=== PATIENT | female | born 1985 | race Caucasian/White ===

== ENCOUNTER 2018-01-05 09:57 | Emergency (ER) | payer BC ==
[2018-01-05 12:26] LABS: URINE BLOOD (Dip) POC 2+ (NEGATIVE); URINE GLUCOSE (Dip) POC Negative (NEGATIVE); URINE KETONES (Dip) POC Negative (NEGATIVE); URINE LEUKOCYTE EST (Dip) POC Negative (NEGATIVE); URINE NITRITE (Dip) POC Negative (NEGATIVE); URINE TOTAL PROTEIN POC 2+ (NEGATIVE)
[2018-01-05 12:26] LABS: URINE PH (Dip) POC 5.5 (5.0-8.5)
[2018-01-05 12:28] LABS: ADD MAN DIFF? NO
[2018-01-05 12:29] LABS: BASOPHILS % 0.3 % (0.0-2.0); EOSINOPHILS # 0.2 10^3/ul (0.0-0.5); EOSINOPHILS % 2.7 % (0.0-7.0); HEMATOCRIT 43.1 % (37.0-47.0); HEMOGLOBIN 14.4 g/dl (12.0-16.0); LYMPHOCYTES # 2.7 10^3/ul (0.8-2.9); LYMPHOCYTES % 43.1 % (15.0-51.0); MEAN CORPUSCULAR HEMOGLOBIN 28.9 pg (29.0-33.0); MEAN CORPUSCULAR HGB CONC 33.4 g/dl (32.0-37.0); MEAN CORPUSCULAR VOLUME 86.4 fl (82.0-101.0); MEAN PLATELET VOLUME 11.5 fl (7.4-10.4); MONOCYTE # 0.5 10^3/ul (0.3-0.9); NEUTROPHIL # 2.9 10^3/ul (1.6-7.5); NEUTROPHILS % 45.7 % (39.0-77.0); PLATELET COUNT 214 10^3/UL (140-415); RED BLOOD COUNT 4.99 10^6/ul (4.20-5.40); RED CELL DISTRIBUTION WIDTH 11.5 % (11.5-14.5)
[2018-01-05 12:29] LABS: WHITE BLOOD COUNT 6.3 10^3/ul (4.8-10.8)
[2018-01-05 12:49] LABS: ALANINE AMINOTRANSFERASE 34 IU/L (13-69); ALBUMIN 4.7 g/dl (3.3-4.9); ALBUMIN/GLOBULIN RATIO 1.42; ALKALINE PHOSPHATASE 68 IU/L (42-121); ANION GAP 15 (8-16); ASPARTATE AMINO TRANSFERASE 23 IU/L (15-46); BILIRUBIN,INDIRECT 0.7 mg/dl (0-1.1); BILIRUBIN,TOTAL 0.7 mg/dl (0.2-1.3); BLOOD UREA NITROGEN 7 mg/dl (7-20); CALCIUM 9.3 mg/dl (8.4-10.2); CARBON DIOXIDE 30 mmol/L (21-31); CHLORIDE 106 mmol/L (97-110); CREATININE 0.66 mg/dl (0.44-1.00); GLUCOSE 89 mg/dl (70-220); LIPASE 131 U/L (23-300); POTASSIUM 4.2 mmol/L (3.5-5.1); SODIUM 147 mmol/L (135-144)
== END 2018-01-05 14:53 | disposition home or self-care (01) ==
LOC: FTE 09:57
DX: R10.9 Unspecified abdominal pain (principal); R10.2 Pelvic and perineal pain
CPT/HCPCS: 36415; 74176; 80053; 81003; 83690; 85025; 99284-25

== ENCOUNTER 2018-03-30 10:20 | Day surgery (SDC) | payer BC ==
[2018-03-30] MEDS ORDERED: MIDAZOLAM 1 MG/ML 2 ML INJ ×2 (11:45)
[2018-03-30] MEDS ORDERED: FENTAnyl 50 MCG/ML VIAL (11:45)
== END 2018-03-30 13:33 | disposition home or self-care (01) ==
LOC: GIL 10:20
DX: R19.4 Change in bowel habit (principal); D12.5 Benign neoplasm of sigmoid colon; K64.8 Other hemorrhoids
CPT/HCPCS: 45380; 84703; 88305